=== PATIENT | female | born 1955 | race African-American/Black ===

== ENCOUNTER 2020-10-06 12:25 | Inpatient (IN) ==
[2020-10-06 14:23] LABS: Basophils % 0.3 % (0.0-0.8); Eosinophils % 0.2 % (0.00-10.9); Hematocrit 26.4 VOL% (35.7-47.0); Hemoglobin 8.5 GM/DL (12.0-16.0); Immature Granulocytes % 0.7 %; Immature Granulocytes Absolute 0.09 #; Lymphocytes # 1.1 10*3/uL (1.4-4.0); Lymphocytes % 8.7 % (21.3-54.2); Mean Corpuscular HGB Conc 32.2 GM/DL (32-36); Mean Corpuscular Volume 95.3 FL (87-102); Mean Platelet Volume 9.9 FL (9.6-12.0); Monocytes % 10.7 % (1.7-12.7); Neutrophils % 79.4 % (38.7-73.9); Platelet Count 265 T/CUMM (130-400); Red Blood Count 2.77 MC/CUMM (3.8-5.5); Red Cell Distribution Width 16.2 % (9.3-17.3); White Blood Count 12.6 T/CUMM (4-12)
[2020-10-06 14:40] LABS: Alanine Aminotransferase 11 U/L (13-56); Albumin 2.8 G/DL (3.4-5.0); Alkaline Phosphatase 51 U/L (45-117); Aspartate Amino Transferase 14 U/L (0-37); Bilirubin,Total < 0.39 MG/DL (0.2-1.0); Blood Urea Nitrogen 21 MG/DL (7-18); Calcium 9.4 MG/DL (8.5-10.1); Estimated Glom Filtration Rate 6 ML/MIN; Glucose 108 MG/DL (74-106); Osmolality,Calculated 276.8 MOS/KG (273-304); Total Protein 7.6 G/DL (6.4-8.3)
[2020-10-06] MEDS ORDERED: LACTULOSE 20 GM/30 ML UDCUP PO PRN (15:37)
[2020-10-06] MEDS ORDERED: ONDANSETRON 4 MG/2 ML VIAL IV PRN (15:37)
[2020-10-06] MEDS ORDERED: guaiFENesin/DM ER 600-30 MG TABLET PO PRN (15:37)
[2020-10-06] MEDS ORDERED: ZALEPLON 5 MG CAPSULE PO PRN (15:37)
[2020-10-06] MEDS ORDERED: DEXTROSE 50% 25 GM/50 ML VIAL IV PRN (15:37)
[2020-10-06] MEDS ORDERED: hydrALAZINE 20 MG/1 ML VIAL IV PRN (15:37)
[2020-10-06] MEDS ORDERED: SIMETHICONE CHEW 125 MG TABLET PO PRN (15:37)
[2020-10-06] MEDS ORDERED: GLUCAGON 1 MG VIAL IM PRN (15:37)
[2020-10-06] MEDS ORDERED: DOCUSATE SODIUM 100 MG CAPSULE PO PRN (15:37)
[2020-10-06] MEDS ORDERED: CALCIUM CARBONATE CHEW 500 MG TABLET PO PRN (15:37)
[2020-10-06] MEDS ORDERED: ALUMINUM/MAGNES/SIMETH MAX STR 30 ML UDCUP PO PRN (15:37)
[2020-10-06] MEDS ORDERED: ACETAMINOPHEN 325 MG TABLET PO PRN (15:37)
[2020-10-06] MEDS ORDERED: BISACODYL 5 MG TABLET PO PRN (15:37)
[2020-10-06] MEDS ORDERED: NICOTINE 21 MG/24 HR PATCH TRANSDERM PRN (15:37)
[2020-10-06] MEDS ORDERED: diphenhydrAMINE CAP 25 MG CAPSULE PO PRN (15:37)
[2020-10-06] MEDS ORDERED: ACETAMINOPHEN 500 MG TABLET PO STA (15:43)
[2020-10-06 15:56] LABS: Lymphocytes 7 % (20-55); Segmented Neutrophils 87 % (50-85); Total Cells Counted 100
[2020-10-06] MEDS ORDERED: POTASSIUM CHLORIDE 20 MEQ TABLET PO STA (15:59)
[2020-10-06] MEDS ORDERED: MORPHINE 4 MG/1 ML VIAL IV PRN (16:00)
[2020-10-06] MEDS: HEPARIN 5,000 UNIT/1 ML VIAL SUBCUT SCH (17:11)
[2020-10-06] MEDS: PIPERACILLIN/TAZOBACTAM 3,375 MG in SODIUM CHLORIDE 0.9% 100 ML IV SCH (17:44)
[2020-10-06] MEDS ORDERED: VANCOMYCIN INJ 1,750 MG in SODIUM CHLORIDE 0.9% 500 ML IV ONE (18:00)
[2020-10-06] MEDS: traZODone 50 MG TABLET PO PRN (20:35)
[2020-10-06] MEDS: DOXAZOSIN 1 MG TABLET PO SCH (20:35)
[2020-10-06] MEDS: carvediloL 25 MG TABLET PO SCH (20:35)
[2020-10-06] MEDS: LOSARTAN 50 MG TABLET PO SCH (20:35)
[2020-10-07] MEDS: HEPARIN 5,000 UNIT/1 ML VIAL SUBCUT SCH ×3 (00:30→17:43)
[2020-10-07] MEDS: PIPERACILLIN/TAZOBACTAM 3,375 MG in SODIUM CHLORIDE 0.9% 100 ML IV SCH ×2 (04:39→17:44)
[2020-10-07 05:54] LABS: Basophils % 0.4 % (0.0-0.8); Eosinophils # 0.1 10*3/uL (0.0-0.87); Eosinophils % 0.5 % (0.00-10.9); Hematocrit 25.4 VOL% (35.7-47.0); Hemoglobin 8.1 GM/DL (12.0-16.0); Immature Granulocytes % 0.6 %; Immature Granulocytes Absolute 0.06 #; Lymphocytes # 1.3 10*3/uL (1.4-4.0); Lymphocytes % 12.3 % (21.3-54.2); Mean Corpuscular HGB Conc 31.9 GM/DL (32-36); Mean Corpuscular Volume 96.2 FL (87-102); Mean Platelet Volume 10.2 FL (9.6-12.0); Monocytes % 14.3 % (1.7-12.7); Neutrophils % 71.9 % (38.7-73.9); Platelet Count 236 T/CUMM (130-400); Red Blood Count 2.64 MC/CUMM (3.8-5.5); Red Cell Distribution Width 16.4 % (9.3-17.3); White Blood Count 10.4 T/CUMM (4-12)
[2020-10-07 06:36] LABS: Albumin 2.5 G/DL (3.4-5.0); Bilirubin,Total 0.4 MG/DL (0.2-1.0); Calcium 9.2 MG/DL (8.5-10.1); Osmolality,Calculated 278.7 MOS/KG (273-304)
[2020-10-07] MEDS ORDERED: SODIUM CHLORIDE 0.9% 1,000 ML IV PRN (08:14)
[2020-10-07] MEDS ORDERED: VANCOMYCIN INJ 750 MG in SODIUM CHLORIDE 0.9% 250 ML IV PRN (09:00)
[2020-10-07 09:38] LABS: Bacteria,Urine Many /HPF (Few); Bilirubin,Urine Negative (Negative); Blood, Urine Negative (Negative); Glucose,Urine (UA) Negative (Negative); Ketones,Urine Negative (Negative); Mucus,Urine Occasional /LPF (Occasional); Nitrite,Urine Negative (Negative); Protein,Urine >=500 MG/DL; RBC,Urine 3 /HPF (0-4); Squamous Epithelial Cell,Urine Occasional /HPF (0-10); Urine Appearance Slightly Hazy (Clear); Urine Color Yellow (Yellow); Urine Specific Gravity 1.014 (1.001-1.035); Urine Urobilinogen < 2.0 EU/DL (0.2-1.0); WBC,Urine 3 /HPF (0-6)
[2020-10-07] MEDS: SEVELAMER CARBONATE 800 MG TABLET PO SCH ×3 (09:53→17:43)
[2020-10-07] MEDS: MULTIVITAMIN (BEROCCA) TABLET PO SCH (09:53)
[2020-10-07] MEDS: PANTOPRAZOLE 40 MG TABLET PO SCH (09:54)
[2020-10-07] MEDS: carvediloL 25 MG TABLET PO SCH ×2 (09:54→21:32)
[2020-10-07] MEDS: amLODIPine 10 MG TABLET PO SCH (09:54)
[2020-10-07] MEDS: traZODone 50 MG TABLET PO PRN (21:32)
[2020-10-07] MEDS: DOXAZOSIN 1 MG TABLET PO SCH (21:32)
[2020-10-07] MEDS: LOSARTAN 50 MG TABLET PO SCH (21:32)
[2020-10-08] MEDS: HEPARIN 5,000 UNIT/1 ML VIAL SUBCUT SCH ×4 (00:05→23:55)
[2020-10-08 04:01] LABS: Basophils % 0.4 % (0.0-0.8); Eosinophils # 0.2 10*3/uL (0.0-0.87); Eosinophils % 2.5 % (0.00-10.9); Hematocrit 24.5 VOL% (35.7-47.0); Hemoglobin 7.7 GM/DL (12.0-16.0); Immature Granulocytes Absolute 0.09 #; Lymphocytes # 1.7 10*3/uL (1.4-4.0); Lymphocytes % 18.4 % (21.3-54.2); Mean Corpuscular HGB Conc 31.4 GM/DL (32-36); Mean Corpuscular Volume 95.3 FL (87-102); Monocytes % 13.2 % (1.7-12.7); Neutrophils % 64.5 % (38.7-73.9); Platelet Count 256 T/CUMM (130-400); Red Blood Count 2.57 MC/CUMM (3.8-5.5); Red Cell Distribution Width 16.1 % (9.3-17.3); White Blood Count 9.2 T/CUMM (4-12)
[2020-10-08 04:20] LABS: Alanine Aminotransferase 17 U/L (13-56); Albumin 2.3 G/DL (3.4-5.0); Alkaline Phosphatase 44 U/L (45-117); Aspartate Amino Transferase 20 U/L (0-37); Bilirubin,Total < 0.39 MG/DL (0.2-1.0); Blood Urea Nitrogen 34 MG/DL (7-18); Calcium 9.4 MG/DL (8.5-10.1); Estimated Glom Filtration Rate 4 ML/MIN; Glucose 87 MG/DL (74-106); Osmolality,Calculated 285.4 MOS/KG (273-304); Total Protein 6.9 G/DL (6.4-8.3)
[2020-10-08] MEDS: PIPERACILLIN/TAZOBACTAM 3,375 MG in SODIUM CHLORIDE 0.9% 100 ML IV SCH ×2 (04:43→20:58)
[2020-10-08] MEDS: SEVELAMER CARBONATE 800 MG TABLET PO SCH ×3 (08:52→16:43)
[2020-10-08] MEDS: amLODIPine 10 MG TABLET PO SCH (08:52)
[2020-10-08] MEDS: PANTOPRAZOLE 40 MG TABLET PO SCH (08:52)
[2020-10-08] MEDS: carvediloL 25 MG TABLET PO SCH ×2 (08:53→20:51)
[2020-10-08] MEDS: MULTIVITAMIN (BEROCCA) TABLET PO SCH (08:53)
[2020-10-08 16:04] LABS: Hematocrit 31.7 VOL% (35.7-47.0)
[2020-10-08 16:08] LABS: Hemoglobin 10.3 GM/DL (12.0-16.0)
[2020-10-08] MEDS ORDERED: VANCOMYCIN INJ 750 MG in SODIUM CHLORIDE 0.9% 250 ML IV ONE (17:00)
[2020-10-08] MEDS: DOXAZOSIN 1 MG TABLET PO SCH (20:51)
[2020-10-08] MEDS: LOSARTAN 50 MG TABLET PO SCH (20:51)
[2020-10-09 05:59] LABS: Basophils # 0.1 10*3/uL (0.0-0.2); Basophils % 0.7 % (0.0-0.8); Eosinophils # 0.3 10*3/uL (0.0-0.87); Eosinophils % 3.9 % (0.00-10.9); Hematocrit 30.2 VOL% (35.7-47.0); Hemoglobin 9.8 GM/DL (12.0-16.0); Immature Granulocytes % 2.5 %; Immature Granulocytes Absolute 0.21 #; Lymphocytes # 1.2 10*3/uL (1.4-4.0); Mean Corpuscular HGB Conc 32.5 GM/DL (32-36); Mean Corpuscular Volume 92.6 FL (87-102); Mean Platelet Volume 9.8 FL (9.6-12.0); Monocytes % 13.3 % (1.7-12.7); Neutrophils % 65.6 % (38.7-73.9); Platelet Count 252 T/CUMM (130-400); Red Blood Count 3.26 MC/CUMM (3.8-5.5); Red Cell Distribution Width 16.2 % (9.3-17.3); White Blood Count 8.5 T/CUMM (4-12)
[2020-10-09 06:11] LABS: Albumin 2.4 G/DL (3.4-5.0); Bilirubin,Total 0.4 MG/DL (0.2-1.0); Calcium 9.4 MG/DL (8.5-10.1); Osmolality,Calculated 277.5 MOS/KG (273-304); Total Protein 7.4 G/DL (6.4-8.3)
[2020-10-09 06:28] LABS: % Iron Saturation 22.7 % (18-50)
[2020-10-09 06:34] LABS: Folate 12.9 NG/ML (5.4-24.0)
[2020-10-09] MEDS: MULTIVITAMIN (BEROCCA) TABLET PO SCH (09:38)
[2020-10-09] MEDS: amLODIPine 10 MG TABLET PO SCH (09:38)
[2020-10-09] MEDS: SEVELAMER CARBONATE 800 MG TABLET PO SCH ×2 (09:38→12:23)
[2020-10-09] MEDS: carvediloL 25 MG TABLET PO SCH (09:39)
[2020-10-09] MEDS: HEPARIN 5,000 UNIT/1 ML VIAL SUBCUT SCH (09:39)
[2020-10-09] MEDS: PANTOPRAZOLE 40 MG TABLET PO SCH (09:39)
[2020-10-09] MEDS: PIPERACILLIN/TAZOBACTAM 3,375 MG in SODIUM CHLORIDE 0.9% 100 ML IV SCH (09:39)
[2020-10-09 11:59] VITALS: BP 147/67
== END 2020-10-09 15:00 | disposition home or self-care (01) | DRG 314 ==
LOC: N.ED 12:25 → N.EDINP 15:37 → SUATTDRO 15:37 → N.5E 17:31
PROVIDERS: ADMIT Internal Medicine; ATTEND Internal Medicine

== ENCOUNTER 2020-10-17 14:55 | Inpatient (IN) ==
[2020-10-17 17:41] LABS: Basophils % 0.2 % (0.0-0.8); Eosinophils % 0.1 % (0.00-10.9); Hematocrit 27.3 VOL% (35.7-47.0); Hemoglobin 8.8 GM/DL (12.0-16.0); Immature Granulocytes % 0.8 %; Immature Granulocytes Absolute 0.14 #; Lymphocytes # 0.7 10*3/uL (1.4-4.0); Lymphocytes % 3.5 % (21.3-54.2); Mean Corpuscular HGB Conc 32.2 GM/DL (32-36); Mean Corpuscular Volume 91.6 FL (87-102); Mean Platelet Volume 11.5 FL (9.6-12.0); Neutrophils % 86.4 % (38.7-73.9); Platelet Count 163 T/CUMM (130-400); Red Blood Count 2.98 MC/CUMM (3.8-5.5); White Blood Count 18.5 T/CUMM (4-12)
[2020-10-17 17:54] LABS: Albumin 2.3 G/DL (3.4-5.0); Bilirubin,Total 0.7 MG/DL (0.2-1.0); Osmolality,Calculated 276.7 MOS/KG (273-304); Total Protein 7.5 G/DL (6.4-8.3)
[2020-10-17] MEDS ORDERED: ACETAMINOPHEN 500 MG TABLET PO STA (18:19)
[2020-10-17] MEDS ORDERED: VANCOMYCIN INJ 1,000 MG in SODIUM CHLORIDE 0.9% 250 ML IV STA (18:23)
[2020-10-17 18:24] LABS: Hypersegmented Neutrophil 1+; Lymphocytes 6 % (20-55); Segmented Neutrophils 89 % (50-85); Total Cells Counted 100
[2020-10-17 18:25] LABS: Anisocytosis 1+; Hypochromasia 1+; Toxic Granulation 1+
[2020-10-17 18:26] LABS: Platelet Estimate Decreased
[2020-10-17 19:00] LABS: Bilirubin,Urine Negative (Negative); Blood, Urine Negative (Negative); Glucose,Urine (UA) 50 mg/dL (Negative); Ketones,Urine 5 mg/dL (Negative); Nitrite,Urine Negative (Negative); Protein,Urine >=500 MG/DL; RBC,Urine <1 /HPF (0-4); Squamous Epithelial Cell,Urine Occasional /HPF (0-10); Urine Appearance Slightly Hazy (Clear); Urine Color Yellow (Yellow); Urine Specific Gravity 1.014 (1.001-1.035); Urine Urobilinogen < 2.0 EU/DL (0.2-1.0)
[2020-10-17] MEDS ORDERED: ACETAMINOPHEN 325 MG TABLET PO PRN (19:55)
[2020-10-17] MEDS ORDERED: diphenhydrAMINE CAP 25 MG CAPSULE PO PRN (20:15)
[2020-10-17] MEDS ORDERED: ALUMINUM/MAGNES/SIMETH MAX STR 30 ML UDCUP PO PRN (20:15)
[2020-10-17] MEDS ORDERED: ONDANSETRON 4 MG/2 ML VIAL IV PRN (20:15)
[2020-10-17] MEDS ORDERED: hydrALAZINE 20 MG/1 ML VIAL IV PRN (20:15)
[2020-10-17] MEDS ORDERED: guaiFENesin/DM ER 600-30 MG TABLET PO PRN (20:15)
[2020-10-17] MEDS ORDERED: ZALEPLON 5 MG CAPSULE PO PRN (20:15)
[2020-10-17] MEDS ORDERED: SIMETHICONE CHEW 125 MG TABLET PO PRN (20:15)
[2020-10-17] MEDS ORDERED: GLUCAGON 1 MG VIAL IM PRN (20:15)
[2020-10-17] MEDS ORDERED: CALCIUM CARBONATE CHEW 500 MG TABLET PO PRN (20:15)
[2020-10-17] MEDS ORDERED: NICOTINE 21 MG/24 HR PATCH TRANSDERM PRN (20:15)
[2020-10-17] MEDS ORDERED: DEXTROSE 50% 25 GM/50 ML VIAL IV PRN (20:15)
[2020-10-17] MEDS ORDERED: BISACODYL 5 MG TABLET PO PRN (20:15)
[2020-10-17] MEDS ORDERED: SEVELAMER CARBONATE 800 MG TABLET PO SCH (22:30)
[2020-10-17] MEDS: INSULIN LISPRO 100 UNIT/ML SUBCUT SCH (22:35)
[2020-10-17] MEDS: carvediloL 25 MG TABLET PO SCH (22:42)
[2020-10-17] MEDS: DOXAZOSIN 1 MG TABLET PO SCH (22:43)
[2020-10-18] MEDS ORDERED: VANCOMYCIN INJ 500 MG in SODIUM CHLORIDE 0.9% 100 ML IV ONE
[2020-10-18 06:00] LABS: Basophils % 0.2 % (0.0-0.8); Eosinophils % 0.1 % (0.00-10.9); Hematocrit 24.8 VOL% (35.7-47.0); Hemoglobin 8.1 GM/DL (12.0-16.0); Immature Granulocytes % 1.2 %; Immature Granulocytes Absolute 0.17 #; Lymphocytes # 0.5 10*3/uL (1.4-4.0); Lymphocytes % 3.5 % (21.3-54.2); Mean Corpuscular HGB Conc 32.7 GM/DL (32-36); Mean Corpuscular Volume 90.8 FL (87-102); Mean Platelet Volume 11.6 FL (9.6-12.0); Monocytes % 9.6 % (1.7-12.7); Neutrophils % 85.4 % (38.7-73.9); Platelet Count 154 T/CUMM (130-400); Red Blood Count 2.73 MC/CUMM (3.8-5.5); White Blood Count 14.7 T/CUMM (4-12)
[2020-10-18 06:24] LABS: Band Neutrophils 1 % (0-10); Lymphocytes 5 % (20-55); Platelet Estimate Normal; Segmented Neutrophils 86 % (50-85); Total Cells Counted 100
[2020-10-18 06:25] LABS: Hypochromasia Slight
[2020-10-18 06:35] LABS: Calcium 8.9 MG/DL (8.5-10.1); Osmolality,Calculated 277.7 MOS/KG (273-304)
[2020-10-18] MEDS ORDERED: VANCOMYCIN INJ 750 MG in SODIUM CHLORIDE 0.9% 250 ML IV PRN (07:10)
[2020-10-18] MEDS: INSULIN LISPRO 100 UNIT/ML SUBCUT SCH ×4 (08:33→20:38)
[2020-10-18] MEDS: AZITHROMYCIN INJ 500 MG in SODIUM CHLORIDE 0.9% 250 ML IV SCH (08:34)
[2020-10-18] MEDS: SEVELAMER CARBONATE 800 MG TABLET PO SCH ×3 (08:34→18:00)
[2020-10-18] MEDS: PANTOPRAZOLE 40 MG TABLET PO SCH (08:34)
[2020-10-18] MEDS: VITAMIN B COMPLEX PO SCH (08:34)
[2020-10-18] MEDS: carvediloL 25 MG TABLET PO SCH ×2 (08:34→20:32)
[2020-10-18] MEDS: HEPARIN 5,000 UNIT/1 ML VIAL SUBCUT SCH ×2 (08:34→20:35)
[2020-10-18] MEDS: methylPREDNISolone SOD SUC 40 MG/1 ML VIAL IV SCH ×3 (10:09→22:03)
[2020-10-18] MEDS ORDERED: IRON SUCROSE 300 MG in SODIUM CHLORIDE 0.9% 100 ML IV ONE (11:00)
[2020-10-18] MEDS: PIPERACILLIN/TAZOBACTAM 3,375 MG in SODIUM CHLORIDE 0.9% 100 ML IV SCH ×2 (11:00→20:34)
[2020-10-18] MEDS ORDERED: POTASSIUM CHLORIDE 20 MEQ TABLET PO ONE (12:30)
[2020-10-18] MEDS: DOXAZOSIN 1 MG TABLET PO SCH (20:32)
[2020-10-19] MEDS: methylPREDNISolone SOD SUC 40 MG/1 ML VIAL IV SCH ×3 (05:18→21:43)
[2020-10-19] MEDS: INSULIN LISPRO 100 UNIT/ML SUBCUT SCH ×4 (07:43→20:57)
[2020-10-19] MEDS: SEVELAMER CARBONATE 800 MG TABLET PO SCH ×3 (07:59→16:47)
[2020-10-19] MEDS: PIPERACILLIN/TAZOBACTAM 3,375 MG in SODIUM CHLORIDE 0.9% 100 ML IV SCH ×2 (08:00→20:58)
[2020-10-19] MEDS: AZITHROMYCIN INJ 500 MG in SODIUM CHLORIDE 0.9% 250 ML IV SCH (08:00)
[2020-10-19] MEDS: carvediloL 25 MG TABLET PO SCH ×2 (08:00→20:56)
[2020-10-19] MEDS: VITAMIN B COMPLEX PO SCH (08:01)
[2020-10-19] MEDS: PANTOPRAZOLE 40 MG TABLET PO SCH (08:01)
[2020-10-19] MEDS: HEPARIN 5,000 UNIT/1 ML VIAL SUBCUT SCH ×2 (08:01→21:11)
[2020-10-19 08:05] LABS: Basophils % 0.2 % (0.0-0.8); Hematocrit 26.1 VOL% (35.7-47.0); Hemoglobin 8.6 GM/DL (12.0-16.0); Immature Granulocytes % 1.6 %; Immature Granulocytes Absolute 0.31 #; Lymphocytes # 0.6 10*3/uL (1.4-4.0); Lymphocytes % 2.8 % (21.3-54.2); Mean Platelet Volume 12.3 FL (9.6-12.0); Monocytes % 4.1 % (1.7-12.7); Neutrophils % 91.3 % (38.7-73.9); Platelet Count 163 T/CUMM (130-400); Red Cell Distribution Width 16.3 % (9.3-17.3); White Blood Count 19.9 T/CUMM (4-12)
[2020-10-19 08:18] LABS: Albumin 2.2 G/DL (3.4-5.0); Bilirubin,Total 0.6 MG/DL (0.2-1.0); Calcium 9.3 MG/DL (8.5-10.1); Osmolality,Calculated 283.8 MOS/KG (273-304); Total Protein 6.8 G/DL (6.4-8.3)
[2020-10-19 08:24] LABS: Band Neutrophils 1 % (0-10); Hypochromasia 2+; Lymphocytes 2 % (20-55); Microcytosis 1+; Platelet Estimate Adequate; Segmented Neutrophils 90 % (50-85); Total Cells Counted 100
[2020-10-19] MEDS ORDERED: HEPARIN 10,000 UNIT/10 ML VIAL IV PRN (09:39)
[2020-10-19] MEDS ORDERED: VANCOMYCIN INJ 750 MG in SODIUM CHLORIDE 0.9% 250 ML IV ONE (17:00)
[2020-10-19] MEDS: DOXAZOSIN 1 MG TABLET PO SCH (20:56)
[2020-10-19] MEDS: FERROUS SULFATE 325 MG TABLET PO SCH (20:56)
[2020-10-20 05:56] LABS: Basophils % 0.1 % (0.0-0.8); Hematocrit 26.2 VOL% (35.7-47.0); Hemoglobin 8.6 GM/DL (12.0-16.0); Immature Granulocytes % 0.8 %; Immature Granulocytes Absolute 0.17 #; Lymphocytes # 0.6 10*3/uL (1.4-4.0); Lymphocytes % 2.7 % (21.3-54.2); Mean Corpuscular HGB Conc 32.8 GM/DL (32-36); Mean Corpuscular Volume 90.3 FL (87-102); Mean Platelet Volume 12.9 FL (9.6-12.0); Monocytes % 3.1 % (1.7-12.7); Neutrophils % 93.3 % (38.7-73.9); Platelet Count 162 T/CUMM (130-400); Red Cell Distribution Width 16.4 % (9.3-17.3); White Blood Count 20.9 T/CUMM (4-12)
[2020-10-20] MEDS: methylPREDNISolone SOD SUC 40 MG/1 ML VIAL IV SCH (06:05)
[2020-10-20 06:14] LABS: Albumin 2.1 G/DL (3.4-5.0); Bilirubin,Total 1.1 MG/DL (0.2-1.0); Osmolality,Calculated 284.7 MOS/KG (273-304); Total Protein 7.1 G/DL (6.4-8.3)
[2020-10-20 06:40] LABS: Anisocytosis 2+; Band Neutrophils 9 % (0-10); Hypochromasia 2+; Lymphocytes 2 % (20-55); Macrocytosis 1+; Platelet Estimate Normal; Segmented Neutrophils 85 % (50-85); Total Cells Counted 100
[2020-10-20 06:41] LABS: Target Cells Few
[2020-10-20] MEDS: INSULIN LISPRO 100 UNIT/ML SUBCUT SCH ×4 (08:13→20:31)
[2020-10-20] MEDS: PIPERACILLIN/TAZOBACTAM 3,375 MG in SODIUM CHLORIDE 0.9% 100 ML IV SCH (09:06)
[2020-10-20] MEDS: SEVELAMER CARBONATE 800 MG TABLET PO SCH ×3 (09:08→18:52)
[2020-10-20] MEDS: HEPARIN 5,000 UNIT/1 ML VIAL SUBCUT SCH ×2 (09:08→20:31)
[2020-10-20] MEDS: FERROUS SULFATE 325 MG TABLET PO SCH ×2 (09:08→20:31)
[2020-10-20] MEDS: carvediloL 25 MG TABLET PO SCH ×2 (09:08→20:31)
[2020-10-20] MEDS: PANTOPRAZOLE 40 MG TABLET PO SCH (09:08)
[2020-10-20] MEDS: AZITHROMYCIN INJ 500 MG in SODIUM CHLORIDE 0.9% 250 ML IV SCH (09:17)
[2020-10-20] MEDS: VITAMIN B COMPLEX PO SCH (11:51)
[2020-10-20] MEDS: DOXAZOSIN 1 MG TABLET PO SCH (20:31)
[2020-10-21 06:05] LABS: Basophils % 0.1 % (0.0-0.8); Hematocrit 25.6 VOL% (35.7-47.0); Hemoglobin 8.2 GM/DL (12.0-16.0); Immature Granulocytes Absolute 0.14 #; Lymphocytes # 1.1 10*3/uL (1.4-4.0); Lymphocytes % 7.5 % (21.3-54.2); Mean Corpuscular Volume 91.8 FL (87-102); Mean Platelet Volume 12.3 FL (9.6-12.0); Monocytes % 6.6 % (1.7-12.7); Neutrophils % 84.8 % (38.7-73.9); Platelet Count 195 T/CUMM (130-400); Red Blood Count 2.79 MC/CUMM (3.8-5.5); Red Cell Distribution Width 16.1 % (9.3-17.3); White Blood Count 14.5 T/CUMM (4-12)
[2020-10-21 06:19] LABS: Bilirubin,Total 0.4 MG/DL (0.2-1.0); Osmolality,Calculated 292.5 MOS/KG (273-304); Total Protein 6.5 G/DL (6.4-8.3)
[2020-10-21] MEDS: INSULIN LISPRO 100 UNIT/ML SUBCUT SCH ×4 (07:57→22:06)
[2020-10-21] MEDS: SEVELAMER CARBONATE 800 MG TABLET PO SCH ×3 (08:01→17:43)
[2020-10-21] MEDS: FERROUS SULFATE 325 MG TABLET PO SCH ×2 (08:02→22:05)
[2020-10-21] MEDS: HEPARIN 5,000 UNIT/1 ML VIAL SUBCUT SCH ×2 (08:02→22:06)
[2020-10-21] MEDS: carvediloL 25 MG TABLET PO SCH ×2 (08:02→22:06)
[2020-10-21] MEDS: PANTOPRAZOLE 40 MG TABLET PO SCH (08:02)
[2020-10-21] MEDS ORDERED: methylPREDNISolone SOD SUC 40 MG/1 ML VIAL IV SCH (09:00)
[2020-10-21] MEDS: VITAMIN B COMPLEX PO SCH (12:40)
[2020-10-21] MEDS ORDERED: cefTAZidime 2,000 MG in SYRINGE 1 EACH IV SCH (17:00)
[2020-10-21] MEDS: DOXAZOSIN 1 MG TABLET PO SCH (22:05)
[2020-10-22 05:56] LABS: Basophils % 0.1 % (0.0-0.8); Eosinophils % 0.3 % (0.00-10.9); Hematocrit 23.8 VOL% (35.7-47.0); Hemoglobin 7.9 GM/DL (12.0-16.0); Immature Granulocytes % 1.3 %; Immature Granulocytes Absolute 0.17 #; Lymphocytes # 1.1 10*3/uL (1.4-4.0); Lymphocytes % 8.7 % (21.3-54.2); Mean Corpuscular HGB Conc 33.2 GM/DL (32-36); Mean Corpuscular Volume 90.2 FL (87-102); Mean Platelet Volume 11.8 FL (9.6-12.0); Neutrophils % 81.6 % (38.7-73.9); Platelet Count 202 T/CUMM (130-400); Red Blood Count 2.64 MC/CUMM (3.8-5.5); Red Cell Distribution Width 16.2 % (9.3-17.3); White Blood Count 12.7 T/CUMM (4-12)
[2020-10-22 06:31] LABS: Albumin 2.1 G/DL (3.4-5.0); Bilirubin,Total 0.6 MG/DL (0.2-1.0); Calcium 8.8 MG/DL (8.5-10.1); Osmolality,Calculated 286.5 MOS/KG (273-304); Total Protein 6.3 G/DL (6.4-8.3)
[2020-10-22] MEDS ORDERED: SODIUM CHLORIDE 0.9% 1,000 ML IV PRN (07:00)
[2020-10-22] MEDS: HEPARIN 5,000 UNIT/1 ML VIAL SUBCUT SCH ×2 (08:03→20:46)
[2020-10-22] MEDS: carvediloL 25 MG TABLET PO SCH ×2 (08:03→20:47)
[2020-10-22] MEDS: PANTOPRAZOLE 40 MG TABLET PO SCH (08:03)
[2020-10-22] MEDS: FERROUS SULFATE 325 MG TABLET PO SCH ×2 (08:03→20:47)
[2020-10-22] MEDS: SEVELAMER CARBONATE 800 MG TABLET PO SCH ×3 (08:03→18:31)
[2020-10-22] MEDS: INSULIN LISPRO 100 UNIT/ML SUBCUT SCH ×3 (11:52→21:45)
[2020-10-22] MEDS: VITAMIN B COMPLEX PO SCH (11:54)
[2020-10-22] MEDS: DOXAZOSIN 1 MG TABLET PO SCH (20:47)
[2020-10-23 06:43] LABS: Basophils % 0.1 % (0.0-0.8); Eosinophils # 0.2 10*3/uL (0.0-0.87); Eosinophils % 1.4 % (0.00-10.9); Hematocrit 23.9 VOL% (35.7-47.0); Hemoglobin 7.7 GM/DL (12.0-16.0); Immature Granulocytes % 2.6 %; Immature Granulocytes Absolute 0.28 #; Lymphocytes % 9.2 % (21.3-54.2); Mean Corpuscular HGB Conc 32.2 GM/DL (32-36); Mean Corpuscular Volume 91.9 FL (87-102); Mean Platelet Volume 11.1 FL (9.6-12.0); Monocytes % 6.4 % (1.7-12.7); Neutrophils % 80.3 % (38.7-73.9); Platelet Count 199 T/CUMM (130-400); White Blood Count 10.7 T/CUMM (4-12)
[2020-10-23 07:09] LABS: Albumin 2.1 G/DL (3.4-5.0); Bilirubin,Total 0.4 MG/DL (0.2-1.0); Total Protein 6.3 G/DL (6.4-8.3)
[2020-10-23] MEDS: carvediloL 25 MG TABLET PO SCH ×2 (08:37→21:26)
[2020-10-23] MEDS: PANTOPRAZOLE 40 MG TABLET PO SCH (08:37)
[2020-10-23] MEDS: SEVELAMER CARBONATE 800 MG TABLET PO SCH ×3 (08:37→17:34)
[2020-10-23] MEDS: FERROUS SULFATE 325 MG TABLET PO SCH ×2 (08:37→21:26)
[2020-10-23] MEDS: HEPARIN 5,000 UNIT/1 ML VIAL SUBCUT SCH ×2 (08:39→21:27)
[2020-10-23] MEDS: VITAMIN B COMPLEX PO SCH (08:39)
[2020-10-23] MEDS: INSULIN LISPRO 100 UNIT/ML SUBCUT SCH ×4 (08:51→21:23)
[2020-10-23] MEDS: DOXAZOSIN 1 MG TABLET PO SCH (21:26)
[2020-10-24 06:11] LABS: Basophils % 0.2 % (0.0-0.8); Eosinophils # 0.2 10*3/uL (0.0-0.87); Eosinophils % 1.6 % (0.00-10.9); Hemoglobin 7.1 GM/DL (12.0-16.0); Immature Granulocytes % 3.9 %; Immature Granulocytes Absolute 0.45 #; Lymphocytes # 1.4 10*3/uL (1.4-4.0); Mean Corpuscular HGB Conc 32.3 GM/DL (32-36); Mean Corpuscular Volume 91.7 FL (87-102); Mean Platelet Volume 11.1 FL (9.6-12.0); Monocytes % 8.2 % (1.7-12.7); Neutrophils % 74.1 % (38.7-73.9); Platelet Count 221 T/CUMM (130-400); White Blood Count 11.6 T/CUMM (4-12)
[2020-10-24 06:58] LABS: Bilirubin,Total 0.8 MG/DL (0.2-1.0); Calcium 9.1 MG/DL (8.5-10.1); Osmolality,Calculated 284.2 MOS/KG (273-304); Total Protein 6.3 G/DL (6.4-8.3)
[2020-10-24] MEDS: INSULIN LISPRO 100 UNIT/ML SUBCUT SCH ×3 (07:25→15:42)
[2020-10-24] MEDS: PANTOPRAZOLE 40 MG TABLET PO SCH (08:23)
[2020-10-24] MEDS: HEPARIN 5,000 UNIT/1 ML VIAL SUBCUT SCH (08:23)
[2020-10-24] MEDS: SEVELAMER CARBONATE 800 MG TABLET PO SCH ×2 (08:23→12:23)
[2020-10-24] MEDS: VITAMIN B COMPLEX PO SCH (08:23)
[2020-10-24] MEDS: carvediloL 25 MG TABLET PO SCH (08:23)
[2020-10-24] MEDS: FERROUS SULFATE 325 MG TABLET PO SCH (08:23)
[2020-10-24 11:20] VITALS: BP 121/48
[2020-10-24] MEDS ORDERED: cefTAZidime 1,000 MG in SYRINGE 1 EACH IV SCH (17:00)
== END 2020-10-24 17:01 | disposition home or self-care (01) | DRG 871 ==
LOC: N.ED 14:55 → SUATTDRO 20:38 → N.EDINP 20:38 → N.3E 22:01
PROVIDERS: ADMIT Internal Medicine; ATTEND Internal Medicine